=== PATIENT | female | born 1965 | race Two or more races ===

== ENCOUNTER → 2016-12-27 | Outpatient (CLI) | payer SELFPAY ==
[~2016-12-27] MED LIST: PRILOSEC20 MG PO
== END | disposition disaster alternative care site (69) ==
LOC: GRAD 14:48
DX: R10.9 Unspecified abdominal pain (principal); K76.0 Fatty (change of) liver, not elsewhere classified
CPT/HCPCS: Q9967

== ENCOUNTER → 2017-03-01 | Day surgery (SDC) | payer SELFPAY ==
[~2017-03-01] VITALS: Ht 139.7 cm; Wt 53.3 kg
== END | disposition disaster alternative care site (69) ==
LOC: GPOC 02-26 11:00 → GEND 06:51 → GPOC 11:00
PROC: 0DB68ZX Excision of Stomach, Via Natural or Artificial Opening Endoscopic, Diagnostic (ICD-10-PCS; principal; 2017-03-01)
DX: K29.50 Unspecified chronic gastritis without bleeding (principal); K31.89 Other diseases of stomach and duodenum; Z79.899 Other long term (current) drug therapy
CPT/HCPCS: J2001; J7030

== ENCOUNTER → 2017-03-20 | Day surgery (SDC) | payer SELFPAY ==
[~2017-03-20] VITALS: Ht 139.7 cm; Wt 53.3 kg
== END ==
LOC: GPOC 03-14 09:00 → GEND 07:12 → GPOC 09:00
PROC: 0DJD8ZZ Inspection of Lower Intestinal Tract, Via Natural or Artificial Opening Endoscopic (ICD-10-PCS; principal; 2017-03-20)
DX: Z12.11 Encounter for screening for malignant neoplasm of colon (principal)
CPT/HCPCS: J2001; J7030

== ENCOUNTER → 2017-03-23 | Outpatient (CLI) | payer SELFPAY | END | disposition disaster alternative care site (69) | LOC: GRAD 11:00 | DX: R68.81 Early satiety (principal); R14.0 Abdominal distension (gaseous); R93.3 Abnormal findings on diagnostic imaging of other parts of digestive tract | CPT/HCPCS: A9541 ==